=== PATIENT | female | born 1960 | race African-American/Black ===

== ENCOUNTER → 2016-11-14 | Outpatient (CLI) | payer OTHER | END | disposition home or self-care (01) | LOC: MA 13:57 | PROC: BH02ZZZ Plain Radiography of Bilateral Breasts (ICD-10-PCS; principal; 2016-11-14) | DX: Z12.39 Encounter for other screening for malignant neoplasm of breast (principal) | CPT/HCPCS: G0202 ==

== ENCOUNTER → 2017-12-08 | Outpatient (CLI) | payer OTHER | END | disposition home or self-care (01) | LOC: MA 15:12 | PROC: BH02ZZZ Plain Radiography of Bilateral Breasts (ICD-10-PCS; principal; 2017-12-08) | DX: Z12.39 Encounter for other screening for malignant neoplasm of breast (principal) | CPT/HCPCS: 77067 ==